=== PATIENT | female | born 1995 | race Caucasian/White ===

== ENCOUNTER 2016-10-12 21:11 | Emergency (ER) | payer OTHER ==
[~2016-10-12] VITALS: Ht 154.9 cm; Wt 54.2 kg
[2016-10-12 21:12] VITALS: BP 144/87
[2016-10-12] MEDS ORDERED: LIDOCAINE 1%, 20ML ONE (21:34)
[2016-10-12] MEDS ORDERED: DIPH,PERTUSS(ACELL),TET VAC/PF 0.5 ML IM-VACC ONE ×2 (21:37→22:00)
[2016-10-12] MEDS ORDERED: LIDOCAINE 1%, 20ML INFIL ONE (22:00)
[2016-10-12] MEDS ORDERED: BACITRACIN ZINC OINT 500U/GM, 0.9 GM ONE (22:14)
== END 2016-10-12 22:33 | disposition home or self-care (01) ==
LOC: ED 22:27
DX: S61.012A Laceration without foreign body of left thumb without damage to nail, initial encounter (principal); W26.0XXA Contact with knife, initial encounter; Y93.89 Activity, other specified; Y92.090 Kitchen in other non-institutional residence as the place of occurrence of the external cause; Y99.8 Other external cause status
CPT/HCPCS: 12002; 90471; 90715